=== PATIENT | male | born 1935 | race Caucasian/White ===

== ENCOUNTER 2019-06-10 14:37 | Inpatient (IN) | payer MEDICARE, OTHER ==
[~2019-06-10] VITALS: Ht 188 cm; Wt 92.9 kg
[2019-06-10] MEDS ORDERED: KETAMINE HCL 50 MG/ML 10 ML VIAL ONE (14:39)
[2019-06-10] MEDS ORDERED: RAPID SEQUENCE KIT [RSI] 1 EACH KIT ONE (14:39)
[2019-06-10] MEDS ORDERED: SUCCINYLCHOLINE CHLORIDE 20 MG/ML 10 ML VIAL ONE (14:39)
[2019-06-10] MEDS ORDERED: IOVERSOL 350 MG/ML 100 ML VIAL ONE (14:43)
[2019-06-10] MEDS ORDERED: SODIUM CHLORIDE 0.9% 100 ML ONE (14:43)
[2019-06-10] MEDS ORDERED: CEFE2I IV (14:47)
[2019-06-10] MEDS ORDERED: HYOS0.3738 PO (14:47)
[2019-06-10] MEDS ORDERED: MIRT30 PO (14:47)
[2019-06-10] MEDS ORDERED: ESCI5SOL2 PO (14:47)
[2019-06-10] MEDS ORDERED: VANC1.2514 IV (14:47)
[2019-06-10] MEDS ORDERED: LISI-661 PO (14:47)
[2019-06-10] MEDS ORDERED: DONE10TA8 PO (14:47)
[2019-06-10] MEDS ORDERED: ETOMIDATE 2 MG/ML 10 ML VIAL IVP ONE (14:53)
[2019-06-10] MEDS ORDERED: 0.9% SODIUM CHLORIDE 10 ML SYRINGE IVP ONE (14:54)
[2019-06-10] MEDS ORDERED: ATROPINE SULFATE 0.1 MG/ML 10 ML SYRINGE IVP ONE (14:54)
[2019-06-10 15:08] LABS: HEMATOCRIT 40.8 % (41-53); MEAN CORPUSCULAR HEMOGLOBIN 30.7 pg (26.0-34.0); MEAN CORPUSCULAR VOLUME 96 fL (80-100); PLATELET COUNT (AUTO) 366 K/uL (150-450); RED BLOOD CELL COUNT(AUTO) 4.26 MIL/uL (4.50-5.90); RED CELL DISTRIBUTION WIDTH 15.7 % (11.5-14.5)
[2019-06-10] MEDS ORDERED: SODIUM CHLORIDE 0.9% 2,400 ML IV ONE (15:09)
[2019-06-10] MEDS ORDERED: ESCI20TA PO (15:14)
[2019-06-10] MEDS ORDERED: AZITHROMYCIN 500 MG/NS 250 ML IV ONE (15:15)
[2019-06-10] MEDS ORDERED: PIPERACILLIN/TAZO 3.375 GM/D5W 50 ML IV ONE (15:15)
[2019-06-10] MEDS ORDERED: CefTRIAXone 1 GM/DEXTROSE 50 ML IV ONE (15:15)
[2019-06-10] MEDS ORDERED: NOREPINEPHRINE 4 MG/D5%-WATER 250 ML IV PRN ×2 (15:15→21:30)
[2019-06-10 15:18] LABS: INR 1.1 (0.9-1.1)
[2019-06-10 15:21] LABS: CALCIUM, TOTAL 8.8 mg/dL (8.8-10.5); CHLORIDE 104 mmol/L (98-107); CREATININE 0.67 mg/dL (0.60-1.30); GLOMERULAR FILTR. RATE CALC > 60 mL/min (>60); POTASSIUM 4.6 mmol/L (3.5-5.1); SODIUM SERUM 143 mmol/L (136-145); UREA NITROGEN, BLOOD 11 mg/dL (7-18)
[2019-06-10] MEDS ORDERED: PROPOFOL 1000 MG/ISO-OSM 100 ML IV PRN (15:21)
[2019-06-10 15:23] LABS: ANION GAP -3 mmol/L (8-16); CARBON DIOXIDE 42 mmol/L (22-29); GLUCOSE,RANDOM 201 mg/dL (70-110)
[2019-06-10 15:24] LABS: BILIRUBIN,TOTAL 0.3 mg/dL (0.1-1.0)
[2019-06-10 15:25] LABS: ABG A-A DIFF O2 567.4 mmHg (10-20.0); ABG BASE EXCESS 9.4 mmol/L (-2.0-3.0); ABG CARBOXYHEMOGLOBIN 0.3 % (0.0-1.5); ABG HCO3 31.2 mmol/L (22.0-26.0); ABG METHEMOGLOBIN 0.1 % (0.0-1.5); ABG OXYGEN CONTENT 15.8 mL/dL (15.0-23.0); ABG OXYHEMOGLOBIN 94.6 % (94.0-100.0); ABG PH 7.338 (7.35-7.450); ABG TOTAL HEMOGLOBIN 11.8 G/dL (12.0-18.0); PO2, ARTERIAL BG 77.5 mmHg (71.0-79.0); SOURCE, BLOOD GAS ARTERIAL; TEMPERATURE, FAHRENHEIT, BG 99.1 FAHREN (96.0-98.6)
[2019-06-10 15:25] LABS: ALANINE AMINOTRANSFERASE 14 U/L (12-78); ALBUMIN 2.2 g/dL (3.4-5.0); ALKALINE PHOSPHATASE 148 U/L (46-116); ASPARTATE AMINOTRANSFERASE 18 U/L (15-37); TOTAL PROTEIN, SERUM 6.8 g/dL (6.4-8.2)
[2019-06-10 15:27] LABS: LACTIC ACID 1.2 mmol/L (0.4-2.0)
[2019-06-10 15:28] LABS: ABG PCO2 67 mmHg (35-45); O2 DEVICE,BLOOD GAS VENTILATOR (ROOM AIR); PEEP,BG 5 cm H2O; SITE, BLOOD GAS RT RADIAL; VT, ABG 600 ml
[2019-06-10 15:31] LABS: B-TYPE NATRIURETIC PEPTIDE 692 pg/mL (0-100)
[2019-06-10 15:36] LABS: BAND NEUTROPHILS % (MANUAL) 10 % (0-5); LYMPHOCYTES % (MANUAL) 4 % (22-44); MONOCYTES % (MANUAL) 3 % (2-9); PLATELET MORPHOLOGY COMMENT GIANT PLTS PRESENT; SEGMENTED NEUTROPHILS % 83 % (40-70); WBC MORPHOLOGY TOXIC VACUOLATION
[2019-06-10] MEDS ORDERED: PHENYLEPHRINE 200 MG/D5%-WATER 250 ML IV PRN (17:42)
[2019-06-10] MEDS ORDERED: DEXMEDETOMIDINE HCL 200 MCG in SODIUM CHLORIDE 0.9% 48 ML IV PRN (17:48)
[2019-06-10 17:56] LABS: INFLUENZA TYPE A NEGATIVE FOR TYPE A (NEGATIVE); INFLUENZA TYPE B NEGATIVE FOR TYPE B (NEGATIVE)
[2019-06-10] MEDS ORDERED: 0.9% SODIUM CHLORIDE 10 ML SYRINGE IVP PRN (19:00)
[2019-06-10] MEDS ORDERED: ONDANSETRON HCL 4 MG/2 ML VIAL IVP PRN (19:00)
[2019-06-10] MEDS ORDERED: VANCOMYCIN HCL 1.5 GM in DEXTROSE 5%-WATER 250 ML IV ONE (19:15)
[2019-06-10] MEDS: PANTOPRAZOLE SODIUM 40 MG/VIAL IVP SCH (20:41)
[2019-06-10] MEDS ORDERED: SODIUM CHLORIDE 0.9% 250 ML IV ONE (23:11)
[2019-06-10] MEDS: PIPERACILLIN/TAZO 3.375 GM/D5W 50 ML IV SCH (23:39)
[2019-06-11] VITALS: BP 111/64
[2019-06-11] MEDS: ALBUMIN HUMAN 25%-12.5GM/50ML 50 ML IV SCH ×5 (00:11→22:05)
[2019-06-11] MEDS ORDERED: PHENYLEPHRINE 200 MG/D5%-WATER 250 ML IV PRN (01:52)
[2019-06-11] MEDS ORDERED: DEXMEDETOMIDINE HCL 200 MCG in SODIUM CHLORIDE 0.9% 48 ML IV PRN (02:00)
[2019-06-11 04:00] VITALS: BP 135/75
[2019-06-11] MEDS: PIPERACILLIN/TAZO 3.375 GM/D5W 50 ML IV SCH ×2 (05:22→10:28)
[2019-06-11 06:04] LABS: ANION GAP 2 mmol/L (8-16); CALCIUM, TOTAL 8.5 mg/dL (8.8-10.5); CARBON DIOXIDE 35 mmol/L (22-29); CHLORIDE 102 mmol/L (98-107); CREATININE 1.06 mg/dL (0.60-1.30); GLUCOSE,RANDOM 148 mg/dL (70-110); POTASSIUM 3.9 mmol/L (3.5-5.1); SODIUM SERUM 139 mmol/L (136-145); UREA NITROGEN, BLOOD 14 mg/dL (7-18)
[2019-06-11 06:06] LABS: GLOMERULAR FILTR. RATE CALC > 60 mL/min (>60)
[2019-06-11] MEDS: PROPOFOL 1000 MG/ISO-OSM 100 ML IV PRN ×3 (06:10→22:06)
[2019-06-11] MEDS: VANCOMYCIN HCL 1 GM/D5% WATER 200 ML IV SCH ×2 (06:58→18:52)
[2019-06-11] MEDS ORDERED: LIDOCAINE/PF 1% 5 ML VIAL ONE (07:28)
[2019-06-11 08:00] VITALS: BP 96/55
[2019-06-11] MEDS ORDERED: BARIUM SULFATE 0.1% SUSPENSION 450 ML BOTTLE ONE (08:33)
[2019-06-11] MEDS: PANTOPRAZOLE SODIUM 40 MG/VIAL IVP SCH (10:28)
[2019-06-11 12:00] VITALS: BP 109/60
[2019-06-11] MEDS ORDERED: LABETALOL HCL 5 MG/ML 20 ML VIAL IVP ONE (12:00)
[2019-06-11] MEDS ORDERED: FentaNYL CITRATE-PF 100 MCG/2 ML VIAL IVP ONE (12:00)
[2019-06-11] MEDS ORDERED: ROCURONIUM BROMIDE 10 MG/ML 5 ML VIAL IVP ONE (12:00)
[2019-06-11] MEDS ORDERED: CALCIUM CHLORIDE 100 MG/ML 10 ML SYRINGE IVP ONE (12:00)
[2019-06-11] MEDS ORDERED: VECURONIUM BROMIDE 10 MG/VIAL IVP ONE (12:00)
[2019-06-11] MEDS ORDERED: ESMOLOL HCL 10 MG/ML 10 ML VIAL IVP ONE (12:00)
[2019-06-11] MEDS ORDERED: PHENYLEPHRINE HCL 10 MG/ML VIAL IVP ONE (12:00)
[2019-06-11] MEDS ORDERED: 0.9% SODIUM CHLORIDE 10 ML VIAL IVP ONE (12:00)
[2019-06-11] MEDS: NOREPINEPHRINE 4 MG/D5%-WATER 250 ML IV PRN ×2 (14:23→16:02)
[2019-06-11] MEDS ORDERED: DIATRIZOATE MEGLU/SOD 660/100 MG/ML 120 ML BOTTLE ONE (15:07)
[2019-06-11 15:45] LABS: HEMATOCRIT 31.4 % (41-53); HEMOGLOBIN 10.5 g/dL (13.5-17.5); MEAN CORPUSCULAR HEMOGLOBIN 31.1 pg (26.0-34.0); MEAN CORPUSCULAR HGB CONC 33.5 G/dL (31.0-37.0); MEAN CORPUSCULAR VOLUME 93 fL (80-100); PLATELET COUNT (AUTO) 211 K/uL (150-450); RED BLOOD CELL COUNT(AUTO) 3.38 MIL/uL (4.50-5.90); RED CELL DISTRIBUTION WIDTH 15.2 % (11.5-14.5)
[2019-06-11 16:00] VITALS: BP 109/56
[2019-06-11] MEDS ORDERED: SODIUM CHLORIDE 0.9% 250 ML IV ONE (16:32)
[2019-06-11] MEDS: MEROPENEM 2 GM in SODIUM CHLORIDE 0.9% 100 ML IV SCH (16:36)
[2019-06-11 17:16] LABS: BAND NEUTROPHILS % (MANUAL) 21 % (0-5); LYMPHOCYTES % (MANUAL) 3 % (22-44); MONOCYTES % (MANUAL) 2 % (2-9); PROMYELOCYTES % 0 (0-0)
[2019-06-11 17:17] LABS: METAMYELOCYTES % 2 % (0-0); SEGMENTED NEUTROPHILS % 72 % (40-70); WBC MORPHOLOGY TOXIC VACUOLATION
[2019-06-11] MEDS: RINGERS SOLUTION,LACTATED 1,000 ML IV SCH (18:53)
[2019-06-11 20:00] VITALS: BP 124/71
[2019-06-11] MEDS ORDERED: SODIUM CHLORIDE 0.9% 500 ML IV ONE (21:29)
[2019-06-12] MEDS ORDERED: RINGERS SOLUTION,LACTATED 1,000 ML IV ONE (00:21)
[2019-06-12] MEDS ORDERED: SODIUM CHLORIDE 0.9% 1,000 ML ONE (00:21)
[2019-06-12 00:27] VITALS: BP 106/61
[2019-06-12] MEDS ORDERED: DILTIAZEM HCL 125 MG in DEXTROSE 5%-WATER 100 ML IV SCH (00:30)
[2019-06-12] MEDS ORDERED: METHYLENE BLUE 0.5% 10 ML AMPULE IVP ONE ×2 (01:45→02:00)
[2019-06-12] MEDS: ALBUMIN HUMAN 25%-12.5GM/50ML 50 ML IV SCH ×4 (02:00→20:28)
[2019-06-12 02:08] LABS: HEMATOCRIT 37.4 % (41-53); HEMOGLOBIN 12.5 g/dL (13.5-17.5)
[2019-06-12] MEDS ORDERED: IOHEXOL 240 MG/ML 20 ML VIAL ONE (03:01)
[2019-06-12 06:00] VITALS: BP 112/62
[2019-06-12] MEDS: VANCOMYCIN HCL 1 GM/D5% WATER 200 ML IV SCH (06:32)
[2019-06-12] MEDS: NOREPINEPHRINE 4 MG/D5%-WATER 250 ML IV PRN ×4 (07:10→22:47)
[2019-06-12 07:11] LABS: EOSINOPHILS % (AUTO) 0 % (1.0-6.0); HEMATOCRIT 39.1 % (41-53); HEMOGLOBIN 12.9 g/dL (13.5-17.5); LYMPHOCYTES # (AUTO) 0.5 K/uL (1.0-4.8); LYMPHOCYTES % (AUTO) 2.5 % (22.0-44.0); MEAN CORPUSCULAR HEMOGLOBIN 29.8 pg (26.0-34.0); MEAN CORPUSCULAR HGB CONC 32.9 G/dL (31.0-37.0); MEAN CORPUSCULAR VOLUME 90 fL (80-100); MONOCYTES # (AUTO) 0.6 K/uL (0.1-1.0); MONOCYTES % (AUTO) 2.7 % (2.0-9.0); NEUTROPHILS # (AUTO) 19.7 K/uL (1.8-7.7); PLATELET COUNT (AUTO) 227 K/uL (150-450); RED BLOOD CELL COUNT(AUTO) 4.32 MIL/uL (4.50-5.90); RED CELL DISTRIBUTION WIDTH 15.3 % (11.5-14.5)
[2019-06-12 07:15] LABS: NEUTROPHILS % (AUTO) 94.8 % (40.0-70.0)
[2019-06-12 07:46] LABS: INR 1.2 (0.9-1.1); PROTHROMBIN TIME 11.9 SEC (9.4-11.6)
[2019-06-12 08:00] VITALS: BP 128/57
[2019-06-12 08:04] LABS: ALANINE AMINOTRANSFERASE 19 U/L (12-78); ALBUMIN 1.7 g/dL (3.4-5.0); ALKALINE PHOSPHATASE 80 U/L (46-116); ANION GAP 6 mmol/L (8-16); ASPARTATE AMINOTRANSFERASE 37 U/L (15-37); B-TYPE NATRIURETIC PEPTIDE 124 pg/mL (0-100); BILIRUBIN,TOTAL 1.4 mg/dL (0.1-1.0); CARBON DIOXIDE 30 mmol/L (22-29); CHLORIDE 103 mmol/L (98-107); CREATININE 0.58 mg/dL (0.60-1.30); GLUCOSE,RANDOM 173 mg/dL (70-110); PHOSPHORUS 2.6 mg/dL (2.5-4.9); SODIUM SERUM 139 mmol/L (136-145); THYROID STIMULATING HORMONE 2.59 uIU/mL (0.36-3.74); TOTAL PROTEIN, SERUM 4.6 g/dL (6.4-8.2); UREA NITROGEN, BLOOD 13 mg/dL (7-18); VANCOMYCIN,RANDOM 12.4 mcg/mL (25.0-50.0)
[2019-06-12 08:05] LABS: GLOMERULAR FILTR. RATE CALC > 60 mL/min (>60); POTASSIUM 2.7 mmol/L (3.5-5.1)
[2019-06-12] MEDS ORDERED: POTASSIUM PHOS,M-BASIC-D-BASIC 20 MMOL in DEXTROSE 5%-WATER 150 ML IV ONE (08:30)
[2019-06-12] MEDS ORDERED: DIGOXIN 250 MCG/ML 2 ML AMP IVP ONE (08:30)
[2019-06-12] MEDS ORDERED: MAGNESIUM SULFATE 2 GM/WATER 50 ML IV ONE (08:30)
[2019-06-12] MEDS ORDERED: POTASSIUM CHLORIDE 20 MEQ ER TABLET PO PRN (08:30)
[2019-06-12] MEDS: MEROPENEM 2 GM in SODIUM CHLORIDE 0.9% 100 ML IV SCH ×4 (08:34→16:51)
[2019-06-12] MEDS: PANTOPRAZOLE SODIUM 40 MG/VIAL IVP SCH (08:35)
[2019-06-12] MEDS: POTASSIUM CHL 10 MEQ/WATER 50 ML IV PRN ×7 (08:36→15:23)
[2019-06-12 08:56] LABS: ABG A-A DIFF O2 315.7 mmHg (10-20.0); ABG BASE EXCESS 3.9 mmol/L (-2.0-3.0); ABG CARBOXYHEMOGLOBIN 1.3 % (0.0-1.5); ABG HCO3 27.9 mmol/L (22.0-26.0); ABG METHEMOGLOBIN 0.3 % (0.0-1.5); ABG OXYGEN CONTENT 17.9 mL/dL (15.0-23.0); ABG OXYGEN SATURATION 95.5 % (95.0-98.0); ABG PCO2 37 mmHg (35-45); ABG PH 7.486 (7.35-7.450); ABG TOTAL HEMOGLOBIN 13.5 G/dL (12.0-18.0); PO2, ARTERIAL BG 71.4 mmHg (71.0-79.0); SOURCE, BLOOD GAS ARTERIAL; TEMPERATURE, FAHRENHEIT, BG 98.6 FAHREN (96.0-98.6)
[2019-06-12] MEDS: DEXMEDETOMIDINE HCL 200 MCG in SODIUM CHLORIDE 0.9% 48 ML IV PRN ×2 (09:00→20:23)
[2019-06-12 09:06] LABS: O2 DEVICE,BLOOD GAS VENTILATOR (ROOM AIR); SITE, BLOOD GAS ARTERIAL LINE
[2019-06-12 09:07] LABS: PEEP,BG 5 cm H2O; VT, ABG 500 ml
[2019-06-12 12:00] VITALS: BP 113/55
[2019-06-12] MEDS ORDERED: MORPHINE SULFATE 2 MG/ML SYRINGE IVP PRN (13:30)
[2019-06-12] MEDS: RINGERS SOLUTION,LACTATED 1,000 ML IV SCH (13:44)
[2019-06-12] MEDS ORDERED: FLUCONAZOLE IV ONE (14:30)
[2019-06-12] MEDS ORDERED: NACL ISOOSM IV ONE (14:30)
[2019-06-12 16:00] VITALS: BP 106/51
[2019-06-12 17:22] LABS: ANION GAP 3 mmol/L (8-16); CALCIUM, TOTAL 7.8 mg/dL (8.8-10.5); CARBON DIOXIDE 32 mmol/L (22-29); CHLORIDE 103 mmol/L (98-107); CREATININE 0.62 mg/dL (0.60-1.30); GLOMERULAR FILTR. RATE CALC > 60 mL/min (>60); GLUCOSE,RANDOM 162 mg/dL (70-110); POTASSIUM 3.8 mmol/L (3.5-5.1); SODIUM SERUM 138 mmol/L (136-145); UREA NITROGEN, BLOOD 15 mg/dL (7-18)
[2019-06-12] MEDS ORDERED: POTASSIUM PHOS,M-BASIC-D-BASIC 30 MMOL in DEXTROSE 5%-WATER 250 ML IV ONE (18:00)
[2019-06-12] MEDS ORDERED: RINGERS SOLUTION,LACTATED 1,000 ML IV SCH (18:00)
[2019-06-12] MEDS: VANCOMYCIN HCL 1.25 GM in DEXTROSE 5%-WATER 250 ML IV SCH (18:52)
[2019-06-12] MEDS: SODIUM CHLORIDE 0.9% 1,000 ML IV SCH (18:53)
[2019-06-12] MEDS: MORPHINE SULFATE 2 MG/ML SYRINGE IVP PRN (19:32)
[2019-06-12 20:00] VITALS: BP 134/80
[2019-06-12] MEDS ORDERED: SODIUM CHLORIDE 0.9% 250 ML IV ONE (20:11)
[2019-06-13] VITALS (7 sets, daily range): BP systolic 95–144; BP diastolic 39–73
[2019-06-13] MEDS: MEROPENEM 2 GM in SODIUM CHLORIDE 0.9% 100 ML IV SCH ×3 (00:47→16:33)
[2019-06-13] MEDS: ALBUMIN HUMAN 25%-12.5GM/50ML 50 ML IV SCH ×4 (02:28→20:55)
[2019-06-13] MEDS: MORPHINE SULFATE 2 MG/ML SYRINGE IVP PRN ×3 (03:44→14:01)
[2019-06-13] MEDS ORDERED: SODIUM CHLORIDE 0.9% 500 ML IV ONE ×2 (04:05→15:22)
[2019-06-13] MEDS: SODIUM CHLORIDE 0.9% 1,000 ML IV SCH ×2 (04:23→14:01)
[2019-06-13 05:10] LABS: BASOPHILS % (AUTO) 0.4 % (0.0-2.0); EOSINOPHILS % (AUTO) 0.1 % (1.0-6.0); HEMATOCRIT 28.5 % (41-53); HEMOGLOBIN 9.6 g/dL (13.5-17.5); LYMPHOCYTES # (AUTO) 0.5 K/uL (1.0-4.8); LYMPHOCYTES % (AUTO) 3.3 % (22.0-44.0); MEAN CORPUSCULAR HEMOGLOBIN 30.4 pg (26.0-34.0); MEAN CORPUSCULAR HGB CONC 33.8 G/dL (31.0-37.0); MEAN CORPUSCULAR VOLUME 90 fL (80-100); MONOCYTES # (AUTO) 0.6 K/uL (0.1-1.0); MONOCYTES % (AUTO) 3.7 % (2.0-9.0); NEUTROPHILS # (AUTO) 14.5 K/uL (1.8-7.7); PLATELET COUNT (AUTO) 159 K/uL (150-450); RED BLOOD CELL COUNT(AUTO) 3.16 MIL/uL (4.50-5.90); RED CELL DISTRIBUTION WIDTH 15.5 % (11.5-14.5)
[2019-06-13 05:19] LABS: NEUTROPHILS % (AUTO) 92.5 % (40.0-70.0)
[2019-06-13 05:49] LABS: ALANINE AMINOTRANSFERASE 19 U/L (12-78); ALBUMIN 1.9 g/dL (3.4-5.0); ALKALINE PHOSPHATASE 77 U/L (46-116); ANION GAP 1 mmol/L (8-16); ASPARTATE AMINOTRANSFERASE 23 U/L (15-37); BILIRUBIN,TOTAL 0.6 mg/dL (0.1-1.0); CALCIUM, TOTAL 7.7 mg/dL (8.8-10.5); CARBON DIOXIDE 32 mmol/L (22-29); CHLORIDE 104 mmol/L (98-107); CREATININE 0.66 mg/dL (0.60-1.30); GLOMERULAR FILTR. RATE CALC > 60 mL/min (>60); GLUCOSE,RANDOM 123 mg/dL (70-110); POTASSIUM 3.3 mmol/L (3.5-5.1); SODIUM SERUM 137 mmol/L (136-145); TOTAL PROTEIN, SERUM 4.5 g/dL (6.4-8.2); UREA NITROGEN, BLOOD 10 mg/dL (7-18)
[2019-06-13] MEDS: POTASSIUM CHL 10 MEQ/WATER 50 ML IV PRN ×5 (06:27→14:01)
[2019-06-13] MEDS: VANCOMYCIN HCL 1.25 GM in DEXTROSE 5%-WATER 250 ML IV SCH ×2 (06:45→19:09)
[2019-06-13 07:17] LABS: PHOSPHORUS 1.9 mg/dL (2.5-4.9)
[2019-06-13] MEDS: PANTOPRAZOLE SODIUM 40 MG/VIAL IVP SCH (08:08)
[2019-06-13] MEDS: PROPOFOL 1000 MG/ISO-OSM 100 ML IV PRN ×2 (08:37→19:49)
[2019-06-13] MEDS ORDERED: SODIUM PHOS,M-BASIC-D-BASIC 30 MEQ in DEXTROSE 5%-WATER 150 ML IV ONE (09:00)
[2019-06-13] MEDS ORDERED: SODIUM PHOS,M-BASIC-D-BASIC 30 MMOL in DEXTROSE 5%-WATER 250 ML IV ONE (09:00)
[2019-06-13] MEDS: NOREPINEPHRINE 4 MG/D5%-WATER 250 ML IV PRN (09:23)
[2019-06-13] MEDS: PHYTONADIONE 10 MG/1 ML AMP SQ SCH (09:24)
[2019-06-13 11:55] LABS: ABG BASE EXCESS 7.7 mmol/L (-2.0-3.0); ABG CARBOXYHEMOGLOBIN 0.5 % (0.0-1.5); ABG HCO3 31.1 mmol/L (22.0-26.0); ABG METHEMOGLOBIN 0.3 % (0.0-1.5); ABG OXYGEN SATURATION 96.7 % (95.0-98.0); ABG OXYHEMOGLOBIN 95.9 % (94.0-100.0); ABG PCO2 37 mmHg (35-45); ABG PH 7.534 (7.35-7.450); ABG TOTAL HEMOGLOBIN 8.8 G/dL (12.0-18.0); PO2, ARTERIAL BG 84.7 mmHg (71.0-79.0); SOURCE, BLOOD GAS ARTERIAL; TEMPERATURE, FAHRENHEIT, BG 99.2 FAHREN (96.0-98.6)
[2019-06-13 12:13] LABS: O2 DEVICE,BLOOD GAS VENTILATOR (ROOM AIR); PEEP,BG 5 cm H2O; SITE, BLOOD GAS A LINE; VT, ABG 500 ml
[2019-06-13 12:14] LABS: SPONTANEOUS VT, BG 498 ml
[2019-06-13] MEDS ORDERED: FLUCONAZOLE 400 MG/NACL ISOOSM 200 ML IV SCH (15:00)
[2019-06-13 15:59] LABS: ANION GAP 3 mmol/L (8-16); CALCIUM, TOTAL 7.4 mg/dL (8.8-10.5); CARBON DIOXIDE 31 mmol/L (22-29); CHLORIDE 105 mmol/L (98-107); CREATININE 0.38 mg/dL (0.60-1.30); GLOMERULAR FILTR. RATE CALC > 60 mL/min (>60); GLUCOSE,RANDOM 106 mg/dL (70-110); POTASSIUM 3.8 mmol/L (3.5-5.1); SODIUM SERUM 139 mmol/L (136-145); UREA NITROGEN, BLOOD 9 mg/dL (7-18)
[2019-06-13 16:03] LABS: PHOSPHORUS 2.9 mg/dL (2.5-4.9)
[2019-06-13] MEDS ORDERED: *CLINICAL-TOTAL PARENTERAL NUTRITION DOSING CLINICAL ONE (18:00)
[2019-06-13] MEDS ORDERED: AMIODARONE HCL 360 MG in DEXTROSE 5%-WATER 242.8 ML IV ONE (20:30)
[2019-06-13] MEDS ORDERED: AMIODARONE HCL 150 MG in DEXTROSE 5%-WATER 97 ML IV ONE (20:30)
[2019-06-14] VITALS: BP_SYST 149; BP_SYST 150; BP_DIAS 50; BP_DIAS 59
[2019-06-14] MEDS: SODIUM CHLORIDE 0.9% 1,000 ML IV SCH ×3 (00:22→20:11)
[2019-06-14] MEDS: MEROPENEM 2 GM in SODIUM CHLORIDE 0.9% 100 ML IV SCH ×4 (00:41→23:58)
[2019-06-14] MEDS: ALBUMIN HUMAN 25%-12.5GM/50ML 50 ML IV SCH ×4 (02:06→20:11)
[2019-06-14] MEDS: PROPOFOL 1000 MG/ISO-OSM 100 ML IV PRN ×4 (02:07→23:58)
[2019-06-14] MEDS ORDERED: AMIODARONE HCL 540 MG in DEXTROSE 5%-WATER 239.2 ML IV ONE (02:30)
[2019-06-14 04:00] VITALS: BP 150/59
[2019-06-14 05:20] LABS: BASOPHILS % (AUTO) 0.3 % (0.0-2.0); EOSINOPHILS % (AUTO) 0.2 % (1.0-6.0); HEMATOCRIT 27.9 % (41-53); HEMOGLOBIN 9.3 g/dL (13.5-17.5); LYMPHOCYTES # (AUTO) 0.5 K/uL (1.0-4.8); MEAN CORPUSCULAR HEMOGLOBIN 30.6 pg (26.0-34.0); MEAN CORPUSCULAR HGB CONC 33.5 G/dL (31.0-37.0); MEAN CORPUSCULAR VOLUME 91 fL (80-100); MONOCYTES # (AUTO) 0.7 K/uL (0.1-1.0); MONOCYTES % (AUTO) 5.8 % (2.0-9.0); NEUTROPHILS # (AUTO) 11.1 K/uL (1.8-7.7); PLATELET COUNT (AUTO) 122 K/uL (150-450); RED BLOOD CELL COUNT(AUTO) 3.06 MIL/uL (4.50-5.90); RED CELL DISTRIBUTION WIDTH 15.4 % (11.5-14.5)
[2019-06-14 05:28] LABS: NEUTROPHILS % (AUTO) 89.7 % (40.0-70.0)
[2019-06-14 05:31] LABS: PROTHROMBIN TIME 10.6 SEC (9.4-11.6)
[2019-06-14 05:35] LABS: ANION GAP 6 mmol/L (8-16); CARBON DIOXIDE 30 mmol/L (22-29); CHLORIDE 104 mmol/L (98-107); CREATININE 0.52 mg/dL (0.60-1.30); GLUCOSE,RANDOM 97 mg/dL (70-110); POTASSIUM 3.1 mmol/L (3.5-5.1); SODIUM SERUM 140 mmol/L (136-145); UREA NITROGEN, BLOOD 8 mg/dL (7-18); VANCOMYCIN,RANDOM 20.2 mcg/mL (25.0-50.0)
[2019-06-14 05:45] LABS: GLOMERULAR FILTR. RATE CALC > 60 mL/min (>60)
[2019-06-14] MEDS: VANCOMYCIN HCL 1.25 GM in DEXTROSE 5%-WATER 250 ML IV SCH (06:31)
[2019-06-14 08:00] VITALS: BP_SYST 134; BP_SYST 135; BP_DIAS 55; BP_DIAS 56
[2019-06-14 08:21] LABS: ABG A-A DIFF O2 149.5 mmHg (10-20.0); ABG BASE EXCESS 0.8 mmol/L (-2.0-3.0); ABG CARBOXYHEMOGLOBIN 0.5 % (0.0-1.5); ABG HCO3 25.7 mmol/L (22.0-26.0); ABG METHEMOGLOBIN 0.3 % (0.0-1.5); ABG OXYGEN CONTENT 16.2 mL/dL (15.0-23.0); ABG OXYGEN SATURATION 97.6 % (95.0-98.0); ABG OXYHEMOGLOBIN 96.8 % (94.0-100.0); ABG PCO2 32 mmHg (35-45); ABG PH 7.497 (7.35-7.450); ABG TOTAL HEMOGLOBIN 11.8 G/dL (12.0-18.0); PO2, ARTERIAL BG 99.1 mmHg (71.0-79.0); SOURCE, BLOOD GAS ARTERIAL; TEMPERATURE, FAHRENHEIT, BG 98.6 FAHREN (96.0-98.6)
[2019-06-14 08:24] LABS: O2 DEVICE,BLOOD GAS VENTILATOR (ROOM AIR); SITE, BLOOD GAS ARTERIAL LINE; VT, ABG 500 ml
[2019-06-14 08:25] LABS: PEEP,BG 5 cm H2O
[2019-06-14] MEDS ORDERED: POTASSIUM PHOS,M-BASIC-D-BASIC 30 MEQ in DEXTROSE 5%-WATER 150 ML IV ONE (09:30)
[2019-06-14] MEDS: PANTOPRAZOLE SODIUM 40 MG/VIAL IVP SCH (10:00)
[2019-06-14] MEDS ORDERED: SODIUM CHLORIDE 0.9% 500 ML IV ONE ×2 (10:17→20:49)
[2019-06-14] MEDS: PHYTONADIONE 10 MG/1 ML AMP SQ SCH (10:52)
[2019-06-14 12:00] VITALS: BP 136/48
[2019-06-14] MEDS ORDERED: LIDOCAINE 1%/EPI 1:200,000/PF 10 ML VIAL ONE (12:25)
[2019-06-14] MEDS ORDERED: BACITRACIN 50,000 UNITS/VIAL ONE (12:25)
[2019-06-14] MEDS ORDERED: GELATIN SPONGE,ABSORBABLE 100 MM TP ONE (13:41)
[2019-06-14] MEDS ORDERED: PROPOFOL 1000 MG/ISO-OSM 100 ML IV ONE (13:54)
[2019-06-14 16:00] VITALS: BP 148/55
[2019-06-14] MEDS: FLUCONAZOLE IV SCH (16:00)
[2019-06-14] MEDS: NACL ISOOSM IV SCH (16:00)
[2019-06-14] MEDS ORDERED: SODIUM CHLORIDE 0.9% 250 ML IV ONE ×4 (16:03→20:49)
[2019-06-14] MEDS: VANCOMYCIN HCL 1.5 GM in DEXTROSE 5%-WATER 250 ML IV SCH (18:29)
[2019-06-14 20:00] VITALS: BP 145/55
[2019-06-14] MEDS: AMIODARONE HCL 750 MG in DEXTROSE 5%-WATER 485 ML IV SCH (20:53)
[2019-06-15] VITALS (7 sets, daily range): BP systolic 127–145; BP diastolic 48–54
[2019-06-15] MEDS: ALBUMIN HUMAN 25%-12.5GM/50ML 50 ML IV SCH ×4 (03:08→19:55)
[2019-06-15] MEDS: SODIUM CHLORIDE 0.9% 1,000 ML IV SCH (05:11)
[2019-06-15] MEDS: PROPOFOL 1000 MG/ISO-OSM 100 ML IV PRN ×5 (05:11→23:35)
[2019-06-15 05:58] LABS: ANION GAP 4 mmol/L (8-16); CALCIUM, TOTAL 7.9 mg/dL (8.8-10.5); CARBON DIOXIDE 30 mmol/L (22-29); CHLORIDE 107 mmol/L (98-107); CREATININE 0.47 mg/dL (0.60-1.30); GLUCOSE,RANDOM 97 mg/dL (70-110); SODIUM SERUM 141 mmol/L (136-145); UREA NITROGEN, BLOOD 5 mg/dL (7-18)
[2019-06-15 05:59] LABS: GLOMERULAR FILTR. RATE CALC > 60 mL/min (>60)
[2019-06-15 06:00] LABS: POTASSIUM 2.8 mmol/L (3.5-5.1)
[2019-06-15] MEDS: VANCOMYCIN HCL 1.5 GM in DEXTROSE 5%-WATER 250 ML IV SCH ×2 (06:04→19:04)
[2019-06-15] MEDS: POTASSIUM CHL 10 MEQ/WATER 50 ML IV PRN ×9 (06:09→23:33)
[2019-06-15] MEDS: MEROPENEM 2 GM in SODIUM CHLORIDE 0.9% 100 ML IV SCH ×3 (08:17→23:48)
[2019-06-15] MEDS: PANTOPRAZOLE SODIUM 40 MG/VIAL IVP SCH (08:38)
[2019-06-15] MEDS: PHYTONADIONE 10 MG/1 ML AMP SQ SCH (08:38)
[2019-06-15] MEDS: MORPHINE SULFATE 2 MG/ML SYRINGE IVP PRN (08:39)
[2019-06-15 09:16] LABS: PHOSPHORUS 1.9 mg/dL (2.5-4.9)
[2019-06-15 10:39] LABS: ABG A-A DIFF O2 157.1 mmHg (10-20.0); ABG BASE EXCESS 2.6 mmol/L (-2.0-3.0); ABG CARBOXYHEMOGLOBIN 0.2 % (0.0-1.5); ABG HCO3 26.8 mmol/L (22.0-26.0); ABG METHEMOGLOBIN 0.3 % (0.0-1.5); ABG OXYGEN CONTENT 12.6 mL/dL (15.0-23.0); ABG OXYGEN SATURATION 96.9 % (95.0-98.0); ABG OXYHEMOGLOBIN 96.4 % (94.0-100.0); ABG PCO2 33 mmHg (35-45); ABG PH 7.507 (7.35-7.450); ABG TOTAL HEMOGLOBIN 9.2 G/dL (12.0-18.0); PO2, ARTERIAL BG 90.3 mmHg (71.0-79.0); SOURCE, BLOOD GAS ARTERIAL; TEMPERATURE, FAHRENHEIT, BG 98.1 FAHREN (96.0-98.6)
[2019-06-15 10:40] LABS: O2 DEVICE,BLOOD GAS VENTILATOR (ROOM AIR); PEEP,BG 5 cm H2O; SITE, BLOOD GAS ARTERIAL LINE; VT, ABG 500 ml
[2019-06-15] MEDS ORDERED: SODIUM CHLORIDE 0.9% 500 ML IV ONE (11:02)
[2019-06-15] MEDS ORDERED: HEPARIN SODIUM 1000 UNITS/NS 0 ML ONE (11:34)
[2019-06-15] MEDS: FLUCONAZOLE IV SCH (15:27)
[2019-06-15] MEDS: NACL ISOOSM IV SCH (15:27)
[2019-06-15] MEDS ORDERED: POTASSIUM PHOS,M-BASIC-D-BASIC 30 MMOL in DEXTROSE 5%-WATER 250 ML IV ONE (15:30)
[2019-06-15] MEDS: AMIODARONE HCL 750 MG in DEXTROSE 5%-WATER 485 ML IV SCH (20:27)
[2019-06-15] MEDS ORDERED: DEXTROSE 50%-WATER 25 GM/50 ML SYRINGE IVP PRN (22:00)
[2019-06-15] MEDS ORDERED: SODIUM CHLORIDE 0.9% 1,000 ML IV SCH (22:00)
[2019-06-15] MEDS ORDERED: TPN SOLUTION 1 EA, SODIUM CHLORIDE 70 MEQ, SODIUM PHOS,M-BASIC-D-BASIC 30 MEQ, POTASSIU... IV SCH ×21 (22:00)
[2019-06-16] VITALS: BP 135/56
[2019-06-16] MEDS: POTASSIUM CHL 10 MEQ/WATER 50 ML IV PRN (00:08)
[2019-06-16] MEDS: INSULIN REGULAR, HUMAN 100 UNITS/ML SQ PRN ×4 (00:14→18:40)
[2019-06-16] MEDS: ALBUMIN HUMAN 25%-12.5GM/50ML 50 ML IV SCH ×4 (01:14→20:33)
[2019-06-16] MEDS: PROPOFOL 1000 MG/ISO-OSM 100 ML IV PRN ×2 (02:56→10:06)
[2019-06-16] MEDS ORDERED: SODIUM CHLORIDE 0.9% 500 ML IV ONE (03:31)
[2019-06-16 04:00] VITALS: BP 135/52
[2019-06-16 05:13] LABS: BASOPHILS % (AUTO) 0.2 % (0.0-2.0); EOSINOPHILS % (AUTO) 0.7 % (1.0-6.0); HEMATOCRIT 25.6 % (41-53); HEMOGLOBIN 8.6 g/dL (13.5-17.5); LYMPHOCYTES # (AUTO) 0.4 K/uL (1.0-4.8); LYMPHOCYTES % (AUTO) 4.4 % (22.0-44.0); MEAN CORPUSCULAR HEMOGLOBIN 30.8 pg (26.0-34.0); MEAN CORPUSCULAR HGB CONC 33.7 G/dL (31.0-37.0); MEAN CORPUSCULAR VOLUME 91 fL (80-100); MONOCYTES # (AUTO) 0.6 K/uL (0.1-1.0); NEUTROPHILS # (AUTO) 7.7 K/uL (1.8-7.7); PLATELET COUNT (AUTO) 99 K/uL (150-450); RED CELL DISTRIBUTION WIDTH 15.6 % (11.5-14.5)
[2019-06-16 05:28] LABS: ANION GAP -1 mmol/L (8-16); CALCIUM, TOTAL 8.3 mg/dL (8.8-10.5); CARBON DIOXIDE 32 mmol/L (22-29); CHLORIDE 106 mmol/L (98-107); CREATININE 0.46 mg/dL (0.60-1.30); GLOMERULAR FILTR. RATE CALC > 60 mL/min (>60); GLUCOSE,RANDOM 142 mg/dL (70-110); PHOSPHORUS 2.5 mg/dL (2.5-4.9); POTASSIUM 3.7 mmol/L (3.5-5.1); SODIUM SERUM 137 mmol/L (136-145); UREA NITROGEN, BLOOD 5 mg/dL (7-18); VANCOMYCIN,RANDOM 21.3 mcg/mL (25.0-50.0)
[2019-06-16 05:38] LABS: NEUTROPHILS % (AUTO) 87.7 % (40.0-70.0)
[2019-06-16] MEDS: VANCOMYCIN HCL 1.5 GM in DEXTROSE 5%-WATER 250 ML IV SCH ×2 (06:26→18:34)
[2019-06-16 07:13] LABS: GLUCOSE,POINT OF CARE 135 MG/DL (70-110)
[2019-06-16 07:13] LABS: GLUCOSE,POINT OF CARE 138 MG/DL (70-110)
[2019-06-16 08:00] VITALS: BP 123/46
[2019-06-16] MEDS: MEROPENEM 2 GM in SODIUM CHLORIDE 0.9% 100 ML IV SCH ×2 (08:25→16:24)
[2019-06-16] MEDS: PANTOPRAZOLE SODIUM 40 MG/VIAL IVP SCH (08:25)
[2019-06-16] MEDS ORDERED: POTASSIUM PHOS,M-BASIC-D-BASIC 20 MEQ in DEXTROSE 5%-WATER 100 ML IV ONE (10:00)
[2019-06-16 11:15] LABS: ABG A-A DIFF O2 166.2 mmHg (10-20.0); ABG BASE EXCESS 5.6 mmol/L (-2.0-3.0); ABG CARBOXYHEMOGLOBIN 0.7 % (0.0-1.5); ABG HCO3 29.1 mmol/L (22.0-26.0); ABG METHEMOGLOBIN 0.1 % (0.0-1.5); ABG OXYGEN SATURATION 95.1 % (95.0-98.0); ABG OXYHEMOGLOBIN 94.3 % (94.0-100.0); ABG PCO2 40 mmHg (35-45); SOURCE, BLOOD GAS ARTERIAL; TEMPERATURE, FAHRENHEIT, BG 98.6 FAHREN (96.0-98.6)
[2019-06-16 11:19] LABS: SITE, BLOOD GAS ARTERIAL LINE
[2019-06-16 11:20] LABS: O2 DEVICE,BLOOD GAS VENTILATOR (ROOM AIR); PEEP,BG 5 cm H2O; VT, ABG 500 ml
[2019-06-16 12:00] VITALS: BP 118/50
[2019-06-16 14:06] LABS: GLUCOSE,POINT OF CARE 150 MG/DL (70-110)
[2019-06-16] MEDS: FLUCONAZOLE IV SCH (15:55)
[2019-06-16] MEDS: NACL ISOOSM IV SCH (15:55)
[2019-06-16 16:00] VITALS: BP 130/52
[2019-06-16 18:46] LABS: GLUCOSE,POINT OF CARE 136 MG/DL (70-110)
[2019-06-16 20:00] VITALS: BP 136/53
[2019-06-16] MEDS: AMIODARONE HCL 750 MG in DEXTROSE 5%-WATER 485 ML IV SCH (21:23)
[2019-06-16] MEDS ORDERED: TPN IV SCH ×11 (22:00)
[2019-06-16] MEDS ORDERED: POTASSIUM CHLORIDE IV SCH ×11 (22:00)
[2019-06-16] MEDS ORDERED: SODIUM CHLORIDE IV SCH ×11 (22:00)
[2019-06-16] MEDS ORDERED: [UNRECOGNIZED DRUG - OTHER] IV SCH ×11 (22:00)
[2019-06-17] VITALS: BP 132/52
[2019-06-17] MEDS: MEROPENEM 2 GM in SODIUM CHLORIDE 0.9% 100 ML IV SCH ×2 (00:26→08:34)
[2019-06-17] MEDS: INSULIN REGULAR, HUMAN 100 UNITS/ML SQ PRN ×2 (00:37→06:42)
[2019-06-17] MEDS: ALBUMIN HUMAN 25%-12.5GM/50ML 50 ML IV SCH ×2 (01:54→08:34)
[2019-06-17] MEDS: PROPOFOL 1000 MG/ISO-OSM 100 ML IV PRN ×2 (01:54→08:35)
[2019-06-17 04:00] VITALS: BP 147/54
[2019-06-17] MEDS ORDERED: SODIUM CHLORIDE 0.9% 250 ML IV ONE (05:07)
[2019-06-17] MEDS: VANCOMYCIN HCL 1.5 GM in DEXTROSE 5%-WATER 250 ML IV SCH (06:23)
[2019-06-17 06:24] LABS: ANION GAP 3 mmol/L (8-16); CALCIUM, TOTAL 8.4 mg/dL (8.8-10.5); CARBON DIOXIDE 31 mmol/L (22-29); CHLORIDE 105 mmol/L (98-107); CREATININE 0.44 mg/dL (0.60-1.30); GLUCOSE,RANDOM 154 mg/dL (70-110); POTASSIUM 3.7 mmol/L (3.5-5.1); SODIUM SERUM 139 mmol/L (136-145); UREA NITROGEN, BLOOD 8 mg/dL (7-18)
[2019-06-17 06:29] LABS: GLOMERULAR FILTR. RATE CALC > 60 mL/min (>60)
[2019-06-17 06:45] LABS: GLUCOSE,POINT OF CARE 122 MG/DL (70-110)
[2019-06-17 06:51] LABS: GLUCOSE,POINT OF CARE 154 MG/DL (70-110)
[2019-06-17 08:00] VITALS: BP 138/44
[2019-06-17] MEDS: PANTOPRAZOLE SODIUM 40 MG/VIAL IVP SCH (08:35)
[2019-06-17 12:00] VITALS: BP 121/42
[2019-06-17] MEDS ORDERED: MORPHINE SULFATE 100 MG/NS/PF 100 ML IV PRN (13:03)
[2019-06-17] MEDS ORDERED: DiphenhydrAMINE HCL 50 MG/ML VIAL IVP PRN (13:15)
[2019-06-17] MEDS ORDERED: ONDANSETRON HCL 4 MG/2 ML VIAL IVP PRN (13:15)
[2019-06-17] MEDS ORDERED: LORazepam 2 MG/ML VIAL IVP PRN ×3 (13:15→13:17)
[2019-06-17] MEDS ORDERED: LORazepam 2 MG/ML VIAL IM PRN (13:15)
== END 2019-06-17 16:05 | disposition expired | DRG 901 ==
LOC: EMS 14:39 → ICU 18:42
PROVIDERS: ADMIT Internal Medicine; ATTEND Internal Medicine
PROC: 5A12012 Performance of Cardiac Output, Single, Manual (ICD-10-PCS; 2019-06-10)
PROC: 5A1955Z Respiratory Ventilation, Greater than 96 Consecutive Hours (ICD-10-PCS; 2019-06-10)
PROC: 0BH17EZ Insertion of Endotracheal Airway into Trachea, Via Natural or Artificial Opening (ICD-10-PCS; 2019-06-10)
PROC: B54BZZA Ultrasonography of Right Lower Extremity Veins, Guidance (ICD-10-PCS; 2019-06-10)
PROC: 06HY33Z Insertion of Infusion Device into Lower Vein, Percutaneous Approach (ICD-10-PCS; 2019-06-10)
PROC: 0K9L0ZZ Drainage of Left Abdomen Muscle, Open Approach (ICD-10-PCS; 2019-06-11)
PROC: 0DB80ZZ Excision of Small Intestine, Open Approach (ICD-10-PCS; principal; 2019-06-12)
PROC: 0JB80ZZ Excision of Abdomen Subcutaneous Tissue and Fascia, Open Approach (ICD-10-PCS; 2019-06-12)
PROC: 0DN80ZZ Release Small Intestine, Open Approach (ICD-10-PCS; 2019-06-12)
PROC: 0F190ZB Bypass Common Bile Duct to Small Intestine, Open Approach (ICD-10-PCS; 2019-06-12)
PROC: 0DNU0ZZ Release Omentum, Open Approach (ICD-10-PCS; 2019-06-12)
PROC: 30233N1 Transfusion of Nonautologous Red Blood Cells into Peripheral Vein, Percutaneous Approach (ICD-10-PCS; 2019-06-12)
PROC: 0JX80ZZ Transfer Abdomen Subcutaneous Tissue and Fascia, Open Approach (ICD-10-PCS; 2019-06-12)
PROC: BF101ZZ Fluoroscopy of Bile Ducts using Low Osmolar Contrast (ICD-10-PCS; 2019-06-12)
PROC: 8E0WXY8 Suture Removal from Trunk Region (ICD-10-PCS; 2019-06-12)
PROC: 02H633Z Insertion of Infusion Device into Right Atrium, Percutaneous Approach (ICD-10-PCS; 2019-06-15)
PROC: B548ZZA Ultrasonography of Superior Vena Cava, Guidance (ICD-10-PCS; 2019-06-15)
PROC: 00P60JZ Removal of Synthetic Substitute from Cerebral Ventricle, Open Approach (ICD-10-PCS; 2019-06-16)
DX: T81.31XA Disruption of external operation (surgical) wound, not elsewhere classified, initial encounter (principal); A41.9 Sepsis, unspecified organism; J96.01 Acute respiratory failure with hypoxia; R65.21 Severe sepsis with septic shock; E43 Unspecified severe protein-calorie malnutrition; K63.1 Perforation of intestine (nontraumatic); J18.9 Pneumonia, unspecified organism; J96.02 Acute respiratory failure with hypercapnia; G91.2 (Idiopathic) normal pressure hydrocephalus; E87.2 Acidosis; J90 Pleural effusion, not elsewhere classified; L02.211 Cutaneous abscess of abdominal wall; K57.92 Diverticulitis of intestine, part unspecified, without perforation or abscess without bleeding; K56.609 Unspecified intestinal obstruction, unspecified as to partial versus complete obstruction; G93.40 Encephalopathy, unspecified; I48.20 Chronic atrial fibrillation, unspecified; T81.42XA Infection following a procedure, deep incisional surgical site, initial encounter; I46.9 Cardiac arrest, cause unspecified; K66.0 Peritoneal adhesions (postprocedural) (postinfection); E11.9 Type 2 diabetes mellitus without complications; E87.6 Hypokalemia; I10 Essential (primary) hypertension; F03.90 Unspecified dementia, unspecified severity, without behavioral disturbance, psychotic disturbance, mood disturbance, and anxiety; Z82.49 Family history of ischemic heart disease and other diseases of the circulatory system; Z87.891 Personal history of nicotine dependence; Z90.49 Acquired absence of other specified parts of digestive tract; Z68.26 Body mass index [BMI] 26.0-26.9, adult; Y83.8 Other surgical procedures as the cause of abnormal reaction of the patient, or of later complication, without mention of misadventure at the time of the procedure; Y92.89 Other specified places as the place of occurrence of the external cause
CPT/HCPCS: 36245; 36569; 36600; 51702; 70496; 71250; 74018; 74176; 76937; 82805; 83605; 83735; 84100; 84132; 84134; 84145; 84443; 85014; 85018; 86850; 86900; 86901; 86920; 87015; 87040; 87070; 87081; 87106; 87186; 87205; 87206; 87804; 88300; 88302; 88305; 88307; 93005; 93306; 93970; 94002; 94003; 96365; 99291; C9113; G0378; J0282; J0330; J0456; J0461; J0610; J0690; J0696; J1160; J1450; J1644; J2001; J2185; J2270; J2370; J2543; J2704; J3010; J3370; J3430; J3475; J3480; J3490; J7030; J7040; J7050; J7060; J7070; J7100; J7120; J7131; P9016; P9047; Q9966